=== PATIENT | male | born 1945 | race Caucasian/White ===

== ENCOUNTER → 2023-07-26 06:40 | Outpatient (REF) | payer MEDICARE, OTHER, SELFPAY | LOC: MRI 3T 06:40 | PROVIDERS: ATTENDING PHYSICIAN Student in an Organized Health Care Education/Training Program; FAMILY PHYSICIAN Internal Medicine; REFERRING PHYSICIAN Orthopaedic Surgery | DX: M25.511 Pain in right shoulder (principal); M47.816 Spondylosis without myelopathy or radiculopathy, lumbar region | CPT/HCPCS: 72148; 73221 ==

== ENCOUNTER → 2023-08-10 06:59 | Day surgery (SDC) | payer MEDICARE, OTHER, SELFPAY ==
[2023-08-10 08:44] LABS: Hematocrit 38.7 % (39.0-52.0); Hemoglobin 12.9 g/dL (13.0-18.0); Mean Corp Hgb Conc. 33.3 g/dL (33.0-37.0); Mean Corpuscular Hgb 31.7 pg (27.0-31.0); Mean Corpuscular Volume 95.1 fL (80.0-94.0); Mean Platelet Volume 9.4 fL (7.4-10.4); Platelet Count 219 10^3/uL (130-400); Red Blood Cell Count 4.07 10^6/uL (4.70-6.10); Red Cell Dist. Width 13.3 % (11.5-14.5); White Blood Cell Count 7.7 10^3/uL (4.8-10.8)
== END ==
LOC: SDSPAT 06:59
PROVIDERS: ATTENDING PHYSICIAN Orthopaedic Surgery; FAMILY PHYSICIAN Internal Medicine
DX: Z01.812 Encounter for preprocedural laboratory examination (principal); S83.011A Lateral subluxation of right patella, initial encounter; X58.XXXA Exposure to other specified factors, initial encounter
CPT/HCPCS: 85027; 36415

== ENCOUNTER 2023-08-12 06:09 | Day surgery (SDC) | payer MEDICARE, OTHER, SELFPAY ==
[2023-08-10 12:16] VITALS: BMI 31.5
[2023-08-12] VITALS (8 sets, daily range): BP systolic 99–139; BP diastolic 63–85; BMI 31.5
[2023-08-12] MEDS: TYLENOL 1000 MG PO (09:11)
[2023-08-12] MEDS: CELEBREX 200 MG PO (09:11)
[2023-08-12] MEDS: NORMOSOL-R 1000 IV (09:14)
== END 2023-08-12 13:30 | disposition home or self-care (01) ==
LOC: SDS 06:09
PROVIDERS: ATTENDING PHYSICIAN Orthopaedic Surgery; FAMILY PHYSICIAN Internal Medicine
DX: M75.121 Complete rotator cuff tear or rupture of right shoulder, not specified as traumatic (principal)
CPT/HCPCS: 29827; 29826; C1713

== ENCOUNTER 2023-09-14 16:03 | Outpatient (RCR) | payer MEDICARE, OTHER, SELFPAY | END 2023-09-14 23:59 | disposition home or self-care (01) | LOC: RPT 16:03 | PROVIDERS: ATTENDING PHYSICIAN Physician Assistant Surgical; FAMILY PHYSICIAN Internal Medicine | DX: Z47.89 Encounter for other orthopedic aftercare (principal); Z73.6 Limitation of activities due to disability; M62.81 Muscle weakness (generalized); M25.511 Pain in right shoulder | CPT/HCPCS: 97010; 97110; 97140; 97161 ==

== ENCOUNTER 2023-10-19 14:11 | Outpatient (RCR) | payer MEDICARE, OTHER, SELFPAY | END 2023-10-19 23:59 | disposition home or self-care (01) | LOC: RPT 14:11 | PROVIDERS: ATTENDING PHYSICIAN Physician Assistant Surgical; FAMILY PHYSICIAN Internal Medicine | DX: M25.511 Pain in right shoulder (principal); Z98.890 Other specified postprocedural states; Z73.6 Limitation of activities due to disability | CPT/HCPCS: 97010; 97110 ==

== ENCOUNTER 2023-11-09 14:49 | Outpatient (RCR) | payer MEDICARE, OTHER, SELFPAY | END 2023-11-09 23:59 | disposition home or self-care (01) | LOC: RPT 14:49 | PROVIDERS: ATTENDING PHYSICIAN Physician Assistant Surgical; FAMILY PHYSICIAN Internal Medicine | DX: Z47.89 Encounter for other orthopedic aftercare (principal); Z73.6 Limitation of activities due to disability; M62.81 Muscle weakness (generalized); M25.511 Pain in right shoulder | CPT/HCPCS: 97010; 97110 ==

== ENCOUNTER 2024-02-11 13:57 | Emergency (ER) | payer MEDICARE, OTHER, SELFPAY ==
[2024-02-11 14:02] VITALS: BP 105/71
[2024-02-11 14:26] LABS: % Basophils 0.9 % (0-2); % Eosinophils 2.4 % (0-6); % Immature Granulocytes 0.1 % (0-0.5); % Lymphocytes 34.4 % (20.5-51.1); % Monocytes 8.6 % (1.7-9.3); % Neutrophils 53.6 % (42.2-75.2); Absolute Basophils 0.1 10^3/uL (0-0.2); Absolute Eosinophils 0.2 10^3/uL (0-0.7); Absolute Monocytes 0.8 10^3/uL (0.1-0.6); Absolute Neutrophils 4.7 10^3/uL (1.4-6.5); Hematocrit 42.7 % (39.0-52.0); Hemoglobin 14.9 g/dL (13.0-18.0); Mean Corp Hgb Conc. 34.9 g/dL (33.0-37.0); Mean Corpuscular Volume 91.8 fL (80.0-94.0); Mean Platelet Volume 9.1 fL (7.4-10.4); Nucleated Red Blood Cells % 0 % (-); Platelet Count 212 10^3/uL (130-400); Red Blood Cell Count 4.65 10^6/uL (4.70-6.10); Red Cell Dist. Width 13.2 % (11.5-14.5); White Blood Cell Count 8.8 10^3/uL (4.8-10.8)
[2024-02-11 14:41] LABS: COVID-19 Antigen Negative (Negative)
[2024-02-11 15:00] LABS: ALT (SGPT) 37 U/L (0-50); AST (SGOT) 44 U/L (17-59); Albumin 4.5 g/dl (3.5-5.0); Alkaline Phosphatase 53 U/L (38-126); Blood Urea Nitrogen 18 mg/dl (9-20); Calcium 9.7 mg/dl (8.4-10.2); Carbon Dioxide 26 mmol/L (22-30); Chloride 104 mmol/L (98-107); Glucose 129 mg/dl (70-99); Magnesium 1.8 mg/dl (1.6-2.3); Potassium 4.7 mmol/L (3.5-5.1); Sodium 140 mmol/L (135-145); Total Bilirubin 0.6 mg/dl (0.2-1.3); Total Protein 6.8 g/dl (6.3-8.2); eGFR > 60.00
--- NOTE | 2024-02-11 15:02 | ED.GENMED ---
History of Present Illness
General
Chief Complaint: Dizziness
Time Seen by Provider: 02/11/24 14:42
History of Present Illness
History of Present Illness:
78-year-old male with history of hypertension and hyperlipidemia presents to the emergency department for evaluation of intermittent symptoms since Wednesday including sweats, blurry vision, dizziness, and confusion. Symptoms seem to wax and wane
without obvious provoking or palliating factors. Denies chest pain or shortness of breath. Currently feels well with no complaints at this time. He also notes 'sounds in my head' as well as vivid dreams that are quite new for him.
Past History
Past History
ED Past Medical History: CAD, Hypercholesterolemia and Other (kidney stones, GERD, depression, arthritis, colon polyps, hemmorhiods)
ED Past Surgical History: Cardiac
Social History
Tobacco: Non-smoker
Alcohol: None
Drug: None
Personal:
Living: with family
Employment: Retired
Review of Systems
Review of Systems
Allergies reviewed?: Yes
All Other Systems: ROS reviewed and negative except as documented in HPI and ROS
Phy Exam
Physical Exam
Physical Exam:
GEN: Well appearing, NAD, WDWN
Eyes: PERRLA, EOMs intact, no scleral icterus
HENT: NCAT, oral mucosa moist, no JVD
Lungs: CTAB, no wheezes, rales, rhonchi, normal chest wall excursion
Cardiac: RRR, no M/R/G, no peripheral edema. Radial pulses 2+ bilat
Abdomen: S, NT, ND, NABS, no masses or hepatosplenomegaly
Neuro: AO x 3, no focal deficits to BUE/BLE, normal sensation throughout
MSK: No gross deformity or ecchymosis. No edema. No digital clubbing
Skin: No rashes, petechiae. Normal color, no pallor or jaundice.
Psych: Calm, cooperative, proper hygiene
Course
Orders/Labs/Results
Orders:
Orders
02/11/24 14:07
ECG [Electrocardiogram (*1)] Urgent
Reason for Study: Vertigo / Dizzy
EKG- Treatment ONCE
02/11/24 14:15
COVID-19 Antigen Urgent
Source: Nasal Swab
Complete Blood Count/With Diff Urgent
Comprehensive Metabolic Panel Urgent
Magnesium Urgent
TSH Reflex To Free T4 Urgent
Troponin I Urgent
02/11/24 15:09
CT Head W/o Iv Contrast Urgent
Comment:
Reason For Exam: dizziness/confusion
02/11/24 16:56
Urinalysis Reflex To Culture Urgent
Date Specimen was Collected: 02/11/24
Time Specimen was Collected: 16:20
Abnormal Lab Results
02/11/24
14:15
RBC 4.65 L 10^6/uL
(4.70-6.10)
MCH 32.0 H pg
(27.0-31.0)
Absolute Monos (auto) 0.8 H 10^3/uL
(0.1-0.6)
Glucose 129 H mg/dl
(70-99)
02/11/24 14:15
02/11/24 14:15
Vital Signs
Initial and Last Documented VS:
Initial Vital Signs
Temp Pulse Resp BP Pulse Ox
97.4 F 98 20 105/71 98
02/11/24 14:02 02/11/24 14:02 02/11/24 14:02 02/11/24 14:02 02/11/24 14:02
Last Documented Vital Signs
Temp Pulse Resp BP Pulse Ox
98.3 F 71 16 118/74 96
02/11/24 17:55 02/11/24 17:55 02/11/24 17:55 02/11/24 17:55 02/11/24 17:55
MDM/Problems Addressed
MDM/Problems Addressed:
Patient's initial EKG in triage noted a rate controlled atrial flutter however upon talking the patient off the telemetry he returned to normal sinus rhythm. His workup is grossly unremarkable otherwise with normal labs and a negative head CT. He
has no focal symptoms to suggest acute CVA. Certainly his intermittent symptoms could be explained by paroxysms of A-fib given that he is higher risk for stroke based on age and health risk factors he would be appropriate to initiate on
anticoagulant therapy. His blood pressure was low normal in the emergency department thus I do not feel that beta-blockers or calcium channel blockers are appropriate at this time. Will recommend close cardiology follow-up
Comment
Comment:
Initial EKG independently interpreted by me shows atrial flutter at a rate of [address] changes concerning for ischemia
*Critical Care Note
Total Time (30-74mins, 75-104mins- exclusive of procedures): Not Applicable
ED Attending Note
-
Portions of this chart may have been created with voice recognition software.� Occasional wrong word or��sound alike� substitutions may have occurred due to the inherent limitations of voice recognition software.
Discharge Plan
Departure
Patient Disposition: Home (Routine Discharge)
Date of Disposition: 02/11/24
Time of Disposition: 17:42
Patient with high blood pressure during this ER visit?: No
Discharge Problem:
New onset atrial flutter
Instructions: Atrial Flutter (DC)
Prescriptions:
New
Eliquis 5 mg tablet
5 mg PO BID Qty: 60 0RF
No Action
venlafaxine 225 MG tablet extended release 24hr
150 mg PO DAILY
pantoprazole 40 MG tablet,delayed release (DR/EC)
40 mg PO DAILY Qty: 90 3RF
atorvastatin 80 MG tablet
80 mg PO HS
ezetimibe 10 MG tablet
10 mg PO QPM
lisinopril [Zestril] 10 MG tablet
10 mg PO HS
montelukast 10 MG tablet
10 mg PO DAILY
aspirin [Aspir-81] 81 mg Tablet,Delayed Release (Dr/Ec)
81 mg PO HS
acetaminophen [Tylenol Ex Str Arthritis Pain] 500 mg Tablet
500 mg PO Q6H PRN (Reason: pain)
fiber Capsule
1 cap PO DAILY
Ever Poly Dex Drops,Suspension
1 drp OPHTHALMIC (EYE) TID
Rx Instructions:
RIGHT EYE
turmeric root extract 500 mg Capsule
500 mg PO DAILY
Centrum Silver Men [id number] mcg Tablet
1 tab PO DAILY
Sciatic Nerve Formula
1 cap PO DAILY
fluticasone propion-salmeterol [Wixela Inhub] 500-50 mcg/dose Blister With Device
1 inh INHALATION BID
Referrals:
Kemal Henriquez MD [Active] -
Mt Vasquez MD [Family Provider] -
Interventions
Interventions:
*Risk Screen - Suicide Last Done: 02/11/24 17:54
*General Assessment Last Done: 02/11/24 14:02
*Neglect/Abuse Screening Last Done: 02/11/24 16:27
*ED COVID-19 Vaccine History Last Done: 02/11/24 17:54
*Nursing Disposition Last Done: 02/11/24 17:55
ED- Neurological Assessment Last Done: 02/11/24 17:02
ED- Cardiac Assessment Last Done: 02/11/24 17:55
ED Swallowing Screen Last Done: 02/11/24 17:54
Discharge Date and Time
Discharge Date/Time: 02/11/24 17:59
Print Language: LIBYAN
[2024-02-11 15:08] LABS: Troponin I < 0.012 ng/ml
[2024-02-11 15:28] LABS: TSH Reflex To Free T4 2.96 uIU/ml (0.47-4.68)
[2024-02-11 17:07] LABS: Urine Albumin Negative (Neg - Trace); Urine Bilirubin Negative (Negative); Urine Character Clear (Clear); Urine Color Yellow; Urine Glucose Negative (Negative); Urine Ketone Negative (Negative); Urine Leukocyte Negative (Negative); Urine Nitrite Negative (Negative); Urine Occult Blood Negative (Negative); Urine Urobilinogen Negative (Neg - 1+)
--- NOTE | 2024-02-11 17:51 | CM ---
CM provided patient and with Everett flores. [facility]. is a pharmacy clinical specialist and will obtain his initial medications through [facility] and then she will [facility].
[2024-02-11 17:55] VITALS: BP 118/74
== END 2024-02-11 17:59 | disposition home or self-care (01) ==
LOC: EMR 13:57
PROVIDERS: Physician Assistant; EMERGENCY PHYSICIAN Emergency Medicine; FAMILY PHYSICIAN Internal Medicine
DX: H53.8 Other visual disturbances (principal); R41.0 Disorientation, unspecified; R42 Dizziness and giddiness; R61 Generalized hyperhidrosis; I48.92 Unspecified atrial flutter; Z11.52 Encounter for screening for COVID-19; I10 Essential (primary) hypertension; E78.00 Pure hypercholesterolemia, unspecified; I25.10 Atherosclerotic heart disease of native coronary artery without angina pectoris; F32.A Depression, unspecified; K21.9 Gastro-esophageal reflux disease without esophagitis; M19.90 Unspecified osteoarthritis, unspecified site; Z87.442 Personal history of urinary calculi; Z91.048 Other nonmedicinal substance allergy status
CPT/HCPCS: 99284; 70450; 80053; 81003; 83735; 84443; 84484; 85025; 87811; 93005

== ENCOUNTER → 2024-04-10 13:55 | Outpatient (REF) | payer MEDICARE, OTHER, SELFPAY | LOC: RCS 13:55 | PROVIDERS: ATTENDING PHYSICIAN Internal Medicine; FAMILY PHYSICIAN Internal Medicine | DX: I25.10 Atherosclerotic heart disease of native coronary artery without angina pectoris (principal); I48.92 Unspecified atrial flutter; I34.1 Nonrheumatic mitral (valve) prolapse | CPT/HCPCS: 93306 ==

== ENCOUNTER → 2024-05-02 11:10 | Outpatient (REF) | payer MEDICARE, OTHER, SELFPAY | LOC: RAD 11:10 | PROVIDERS: ATTENDING PHYSICIAN Nurse Practitioner Family; FAMILY PHYSICIAN Internal Medicine | DX: R06.02 Shortness of breath (principal) | CPT/HCPCS: 71046 ==

== ENCOUNTER → 2024-05-04 08:24 | Outpatient (REF) | payer MEDICARE, OTHER, SELFPAY | LOC: HWRAD 08:24 | PROVIDERS: ATTENDING PHYSICIAN Nurse Practitioner Family; FAMILY PHYSICIAN Internal Medicine; REFERRING PHYSICIAN Internal Medicine | DX: R93.89 Abnormal findings on diagnostic imaging of other specified body structures (principal); J84.9 Interstitial pulmonary disease, unspecified | CPT/HCPCS: 71250 ==

== ENCOUNTER 2024-07-19 10:18 | Inpatient (IN) | payer MEDICARE, OTHER, SELFPAY ==
[2024-07-19 10:42] VITALS: BP 119/84
[2024-07-19 10:53] VITALS: BMI 31.1
--- NOTE | 2024-07-19 12:37 | W.PN.CD ---
Addendum entered and electronically signed by Antonio Stinson MD 07/19/24 16:42:
I saw and examined the patient.
The IC DESIGNER CUSTOM's note was reviewed and I agree with the note.
Comment:
78 y/o male (cardiology patient of Dr. 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
for dofetilide initiation. Has chronic SOB with walking from house to shed. No active CV complaints at the moment. Exam is well-appearing, irregularly irregular rhythm with no murmurs, no LE edema. ECG with atrial fibrillation, HR 88, nonspecific
ST-T wave changes, QTc 436 ms by manual calculation. Start Dofetilide with ECGs after each dose per protocol. Continue ASA, statin, Eliquis.
Original Note:
Today's Communication / Plan
-
Initiate dofetilide with tele and EKG's per protocol
Impression / Plan
-
78 y/o male (cardiology patient of Dr. 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
for dofetilide initiation.
Atrial fibrillation, paroxysmal:
-PAF noted on OP monitor
-continue Eliquis for OAC
-initiate dofetilide per Dr. Henriquez's plan- follow EKG's and tele per protocol
-awaiting labs. EKG to my manual review with QTC 436 ms.
CAD with hx stenting:
-stable no CP
-continue ASA, statin
Lung disease:
-stable without wheezing
-continue inhalers
HTN:
-continue amlodipine and monitor
HLD:
-statin
JACK:
-continue CPAP
Physical Exam
Vital Signs/Labs
Vital Signs
Temp Pulse Resp BP Pulse Ox
97.6 F 106 18 119/84 96
07/19/24 10:59 07/19/24 12:00 07/19/24 10:59 07/19/24 10:42 07/19/24 10:59
07/18/24 07/19/24 07/20/24
06:59 06:59 06:59
Actual Weight 89.9 kg
Physical Exam
Constitutional: No acute distress
EENT: Anicteric
Cardiovascular: Rhythm/rate is irregular
Respiratory: Respiratory effort normal and Lungs clear to auscul.
Neuro/Psych: AO x 3
Data Reviewed
-
Date of Service: July 19, 2024
EKG: Tracing Personally Visualized and interpreted (EKG: afib with QTC 436 ms)
Labs: Other (labs pending)
Old Records: Reviewed
--- NOTE | 2024-07-19 12:45 | PTCARENOTE ---
Pt admitted to IVU as a direct admission from . Pt AAOx3 w/no c/o CP, but does report intermittent SOB w/any activity. Pt oriented to rm & admission assessment completed. After two attempts at placing an IV line, VAT came & placed an IV in pt's L
FA as ordered. Pt placed on telemetry monitoring. Pt is Afib on telemetry. VSS w/HR in the 80's-90's at rest & BP 119/84 on arrival. Cardiology in to see pt & plan of care discussed. Pt to start Tikosyn today at 1999. Plan of care ongoing.
[2024-07-19 13:01] LABS: Hematocrit 41.2 % (39.0-52.0); Hemoglobin 14.3 g/dL (13.0-18.0); Mean Corp Hgb Conc. 34.7 g/dL (33.0-37.0); Mean Corpuscular Hgb 31.4 pg (27.0-31.0); Mean Corpuscular Volume 90.4 fL (80.0-94.0); Mean Platelet Volume 8.9 fL (7.4-10.4); Platelet Count 217 10^3/uL (130-400); Red Blood Cell Count 4.56 10^6/uL (4.70-6.10); Red Cell Dist. Width 12.8 % (11.5-14.5); White Blood Cell Count 7.5 10^3/uL (4.8-10.8)
[2024-07-19 13:18] LABS: Blood Urea Nitrogen 24 mg/dl (9-20); Calcium 9.4 mg/dl (8.4-10.2); Carbon Dioxide 24 mmol/L (22-30); Chloride 100 mmol/L (98-107); Estimated Creatinine Clearance 72 ml/min; Glucose 129 mg/dl (70-99); Potassium 4.4 mmol/L (3.5-5.1); Sodium 135 mmol/L (135-145); eGFR > 60.00
--- NOTE | 2024-07-19 13:22 | W.CARD.TIKOS ---
Initiate Tikosyn
-
I verify that the patient has not taken any verapamil (Isoptin/Calan), ketoconazole (Nizoral), cimetidine (Tagamet), trimethoprim (Trimpex), trimethoprim/sulfamethoxazole (Bactrim), megesterol (Megace), prochlorperazine (Compazine),
hydrochlorothiazide (HCTZ), dolutegravir (Tivicay) or any Class I or Class III anti-arrhythmic within the last three days
AND
I verify that the patient has not taken amiodarone within the last THREE months, or that the patient's amiodarone plasma concentration is <0.3 mcg/mL.
Creatinine 0.9 mg/dL (0.7-1.3) 07/19/24 12:38
Estimated Creat Clear 72 ml/min 07/19/24 12:38
Does patient have a Ventricular Conduction Abnormality: No
I have assessed the baseline QTc interval (using QT for heart rate less than 60 bpm) and deemed the patient is appropriate for Dofetilide therapy. I understand that Tikosyn is contraindicated if the QTc is >440msec (500msec in patients with
ventricular conduction abnormalities).
Baseline QTc (in msec): 436
QTc interval is greater than 440msec without conduction abnormality OR greater than 500msec with a conduction abnormality, but acceptable to proceed per Cardiology attending.
Ordering Physician: Kemal Henriquez
[2024-07-19 13:37] VITALS: BMI 31.1
--- NOTE | 2024-07-19 14:37 | CM ---
CM following for DC planning needs.
Met w/ patient at bedside to complete initial assessment.
Pt. resides in a private, 1 st home w/ spouse. Pt. is functionally indep. at baseline w/ ADLs, mobility without the use of any assisted device. [facility] He reports that the MD will need to send RX to the [facility]
upon DC, but process takes a week or so to get his medicine. He can go to [facility] in the interim and pay out of pocket (thru [employer]) for his medication.
Will need x3 day supply of Dofetilide upon DC.
There are no anticipated DC needs. Expect home once medically stable.
Will cont. to follow.
[2024-07-19 16:21] VITALS: BP 126/82
[2024-07-19] MEDS: ZETIA 10 MG PO (18:22)
[2024-07-19 19:51] VITALS: BP 103/84
[2024-07-19] MEDS: ELIQUIS 5 MG PO (20:01)
[2024-07-19] MEDS: TIKOSYN 500 MCG PO (20:01)
--- NOTE | 2024-07-19 22:04 | RESPNOTE ---
Pt did not have own Cpap nor did he want hospital provided machine.
[2024-07-19 22:07] VITALS: BP 123/71
[2024-07-19] MEDS: LIPITOR 80 MG PO (22:07)
[2024-07-19] MEDS: ASPIR LOW (ENTERIC COATED) 81 MG PO (22:07)
--- NOTE | 2024-07-19 22:37 | PTCARENOTE ---
Received patient at change of shift. Afib on the monitor, HR in the 80s. Tikosyn administered and EKG obtained as per protocol. No complaints from pt at this time, call dalal within reach.
[2024-07-20] VITALS (7 sets, daily range): BP systolic 106–127; BP diastolic 69–94
[2024-07-20] MEDS: MAGNESIUM OXIDE 500 MG PO (07:43)
[2024-07-20] MEDS: EFFEXOR XR 300 MG PO (07:43)
[2024-07-20] MEDS: PROTONIX 40 MG PO (07:43)
[2024-07-20] MEDS: TIKOSYN 500 MCG PO ×2 (07:43→19:31)
[2024-07-20] MEDS: THERAGRAN 1 TABLET PO (07:44)
[2024-07-20] MEDS: FIBERCON 625 MG PO (07:44)
[2024-07-20] MEDS: SINGULAIR 10 MG PO (07:44)
[2024-07-20] MEDS: ELIQUIS 5 MG PO ×2 (07:44→19:31)
[2024-07-20] MEDS: NORVASC 5 MG PO (07:44)
[2024-07-20] MEDS: LASIX 20 MG PO (07:45)
--- NOTE | 2024-07-20 08:37 | W.PN.CD ---
Today's Communication / Plan
-
-Stable status-post 2 doses of Tikosyn; currently back in sinus rhythm.
-Continue Eliquis; patient has not missed any doses over the past 3 weeks.
-Continue to follow EKG's (QTc) and telemetry as per protocol.
Impression / Plan
-
78 y/o male (Ccardiology patient of Dr. 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
for dofetilide initiation.
Atrial fibrillation, paroxysmal:
-Stable status-post 2 doses of Tikosyn; currently back in sinus rhythm.
-Continue Eliquis; patient has not missed any doses over the past 3 weeks.
-Continue to follow EKG's (QTc) and telemetry as per protocol.
CAD with hx stenting:
-Stable; denies anginal symptoms.
-continue ASA, statin
Lung disease:
-Currently stable, asymptomatic.
-continue inhalers
HTN:
-Fairly controlled; continue current medications.
HLD:
-Continue statin
JACK:
-continue CPAP
Physical Exam
Vital Signs/Labs
Vital Signs
Temp Pulse Resp BP Pulse Ox
98.0 F 63 16 118/88 97
07/20/24 07:40 07/20/24 07:40 07/20/24 07:40 07/20/24 07:38 07/20/24 07:40
07/19/24 07/20/24 07/21/24
06:59 06:59 06:59
Actual Weight 89.9 kg
07/19/24 12:38
07/19/24 12:38
Physical Exam
Constitutional: No acute distress and Comfortable
EENT: Anicteric
Cardiovascular: Rhythm & rate is regular, Pedal edema is absent, Systolic murmur absent and S1S2 is normal
Respiratory: Respiratory effort normal and Lungs clear to auscul.
GI: Soft
Neuro/Psych: AO x 3
Other: Skin (Warm, dry, intact)
Data Reviewed
-
Date of Service: July 20, 2024
EKG: Tracing Personally Visualized and interpreted (Telemetry: Atrial fibrillation --> sinus rhythm)
Labs: Labs Reviewed by me
--- NOTE | 2024-07-20 08:53 | PTCARENOTE ---
Assumed care of pt from night RN. Pt received awake and alert, Ox3, [place]. VSS, CM shows NSR 80's, POX 97% on RA. Tikosyn dose #2 given at 0800, next EKG due at 1000. Pt denies any pain or discomfort.
--- NOTE | 2024-07-20 11:02 | CM ---
CM continues to follow for DC planning needs.
DC plan anticipated for home, no needs. Will need 3d RX for Tikosyn prior to DC. Will provide GoodRx coupon.
CM to follow.
--- NOTE | 2024-07-20 14:06 | CHAP ---
Fr. Akbar Hayes of [facility] in [place] heard Mr. Cortez's confession, anointed him and gave him Holy Communion.
[2024-07-20] MEDS: ZETIA 10 MG PO (17:25)
--- NOTE | 2024-07-20 21:02 | PTCARENOTE ---
Patient received at change of shift out of the bed. Patient offers no complaints at this time. Sinus rhythm on monitor worker with first degree AV block, prolonged QT interval, and occasional PACs. Oxygen saturation 95-96% on room air. Discussed
plan of care including Tikosyn loading and ECGs. Call dalal within reach. Care ongoing.
[2024-07-20] MEDS: LIPITOR 80 MG PO (21:44)
[2024-07-20] MEDS: ASPIR LOW (ENTERIC COATED) 81 MG PO (21:44)
[2024-07-21] VITALS (8 sets, daily range): BP systolic 101–134; BP diastolic 65–89
--- NOTE | 2024-07-21 06:24 | PTCARENOTE ---
Notified CBC adoption agent physician Dr. Henriquez of prolonged Qtc on ECG following 2000 Tikosyn dose on 07/20. Per physician please hold AM dose of Tikosyn until the patient can be evaluated.
[2024-07-21] MEDS: FIBERCON 625 MG PO (08:46)
[2024-07-21] MEDS: TIKOSYN 500 MCG PO ×2 (08:46→19:46)
[2024-07-21] MEDS: SINGULAIR 10 MG PO (08:46)
[2024-07-21] MEDS: PROTONIX 40 MG PO (08:48)
[2024-07-21] MEDS: MAGNESIUM OXIDE 500 MG PO (08:48)
[2024-07-21] MEDS: EFFEXOR XR 300 MG PO (08:49)
[2024-07-21] MEDS: THERAGRAN 1 TABLET PO (08:49)
[2024-07-21] MEDS: ELIQUIS 5 MG PO ×2 (08:49→19:46)
[2024-07-21] MEDS: LASIX 20 MG PO (08:53)
[2024-07-21] MEDS: NORVASC 5 MG PO (08:54)
--- NOTE | 2024-07-21 11:01 | W.PN.CD ---
Today's Communication / Plan
-
-QTc remains stable on Tikosyn; 5th dose this am.
-Continues to go in and out of atrial fibrillation at times.
-Will add metoprolol to tartrate 12.5 mg twice daily.
-Continue traffic monitor specialist.
-The patient will receive 6th dose of Tikosyn later tonight; if stable, discharge to home tomorrow morning after a.m. dose.
Impression / Plan
-
78 y/o male (Ccardiology patient of Dr. 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
for dofetilide initiation.
Atrial fibrillation, paroxysmal:
-QTc remains stable on Tikosyn; 5th dose this am.
-Continues to go in and out of atrial fibrillation at times.
-Will add metoprolol to tartrate 12.5 mg twice daily.
-Continue traffic monitor specialist.
-The patient will receive 6th dose of Tikosyn later tonight; if stable, discharge to home tomorrow morning after a.m. dose.
-Continue Eliquis; patient has not missed any doses over the past 3 weeks.
CAD with hx stenting:
-Remains stable without angina.
-continue ASA, statin
Lung disease:
-Remains asymptomatic.
-continue inhalers
HTN:
-Remains fairly controlled.
HLD:
-Continue statin
JACK:
-continue CPAP
Physical Exam
Vital Signs/Labs
Vital Signs
Temp Pulse Resp BP Pulse Ox
98.2 F 66 18 134/65 96
07/21/24 07:11 07/21/24 10:00 07/21/24 07:11 07/21/24 08:54 07/21/24 07:11
07/20/24 07/21/24 07/22/24
06:59 06:59 06:59
Actual Weight 89.9 kg
07/19/24 12:38
07/19/24 12:38
Physical Exam
Constitutional: No acute distress and Comfortable
EENT: Anicteric and Moist mucous membranes
Cardiovascular: Rhythm & rate is regular, Pedal edema is absent, Systolic murmur absent and S1S2 is normal
Respiratory: Respiratory effort normal and Lungs clear to auscul.
GI: Soft
Neuro/Psych: AO x 3
Other: Skin (Warm, dry, intact)
Data Reviewed
-
Date of Service: July 21, 2024
EKG: Tracing Personally Visualized and interpreted (Telemetry: Sinus rhythm, PAF)
Labs: Labs Reviewed by me
--- NOTE | 2024-07-21 11:06 | CM ---
CM following for DC planning needs.
Met w/ patient at bedside.
Pt. feels well, is hopeful for DC soon. We reviewed DC plan for home, without needs.
We reviewed that he will be sent home w/ 3d supply of Tikosyn; reviewed this w/ PLANT SECURITY GUARD.
Will provide pt. with a GoodRX coupon for a month supply of Tikosyn. [facility] He will need a separate RX for ongoing fills of Tikosyn. I updated PLANT SECURITY GUARD of this as well.
Plan is for home, without needs.
[2024-07-21] MEDS: LOPRESSOR 12.5 MG PO ×2 (11:27→19:46)
--- NOTE | 2024-07-21 11:41 | PTCARENOTE ---
post tikosyn ekg QTc 583. notified dr. erazo, continue to monitor. pt is currently sr on the monitor, hr in the 80s, vss. pt offers no complaints at this time. pt ambulating in room and tolerating well. call dalal within reach.
[2024-07-21] MEDS: ZETIA 10 MG PO (17:00)
--- NOTE | 2024-07-21 17:53 | PTCARENOTE ---
pt is sr w/ a first degree, vss. pt offers no complaints at this time. pt and family educated on plan of care and pt verbalized understanding. Tikosyn medication given to pt per pharmacy. pt educated on plan of care and pt verbalized understanding.
call dalal within reach.
[2024-07-21] MEDS: NON-FORMULARY ITEM INH (19:22)
--- NOTE | 2024-07-21 20:22 | PTCARENOTE ---
Patient received at change of shift resting in the bed. Initially in afib on tele monitor but now SR with a first degree AV block. Patient offered no complaints, was initially tearful but reported he received difficult news regarding friends.
Remains on room air, oxygen saturation 95%. Plan of care discussed with patient. Call dalal within reach. Care ongoing.
[2024-07-21] MEDS: ASPIR LOW (ENTERIC COATED) 81 MG PO (22:02)
[2024-07-21] MEDS: LIPITOR 80 MG PO (22:02)
[2024-07-22 02:39] VITALS: BP 116/66
[2024-07-22 06:50] VITALS: BP 102/69
[2024-07-22] MEDS: NON-FORMULARY ITEM 1 INH INH (07:29)
[2024-07-22] MEDS: NON-FORMULARY ITEM INH ×4 (07:36→07:39)
[2024-07-22] MEDS: LASIX 20 MG PO (07:52)
[2024-07-22] MEDS: LOPRESSOR 12.5 MG PO (07:52)
[2024-07-22] MEDS: PROTONIX 40 MG PO (07:52)
[2024-07-22] MEDS: FIBERCON 625 MG PO (07:53)
[2024-07-22] MEDS: NORVASC 5 MG PO (07:53)
[2024-07-22] MEDS: MAGNESIUM OXIDE 500 MG PO (07:53)
[2024-07-22] MEDS: ELIQUIS 5 MG PO (07:53)
[2024-07-22] MEDS: EFFEXOR XR 300 MG PO (07:54)
[2024-07-22] MEDS: THERAGRAN 1 TABLET PO (07:54)
[2024-07-22] MEDS: TIKOSYN 500 MCG PO (07:54)
[2024-07-22] MEDS: SINGULAIR 10 MG PO (07:55)
--- NOTE | 2024-07-22 08:34 | PTCARENOTE ---
Assumed care of pt from night RN. Pt received awake and alert, Ox3. VSs, CM shows NSR 60's, POX 98% on RA. Pt received dose # 6 of Tikosyn this am, will do EKG at 1000. Pt denies any pain or discomfort.
--- NOTE | 2024-07-22 08:52 | W.PN.CD ---
Addendum entered and electronically signed by Antonio Stinson MD 07/22/24 13:12:
I saw and examined the patient.
The CRA's note was reviewed and I agree with the note.
Comment:
78 y/o male (Ccardiology patient of Dr. 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
for dofetilide initiation. He has completed 6 doses of dofetilide. He had one short paroxysm of afib last night around 6pm lasting <30 min. ECG today with QTc 443 ms. Exam with RRR, no murmur, clear lungs, no edema. He is stable for discharge on
dofetilide 500 mcg every 12 hours. Continue other cardiac meds as prior to hospitalization.
Original Note:
Today's Communication / Plan
-
check EKG after morning dose of Tikosyn and if continues to be stable, then d/c home.
Impression / Plan
-
78 y/o male (Ccardiology patient of Dr. 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
for dofetilide initiation.
Atrial fibrillation, paroxysmal:
-QTc remains stable on Tikosyn, awaiting EKG this am after morning dose, discharge to home tomorrow morning after a.m. dose.
-currently in NSR, intermittent atrial fibrillation at times.
-continue metoprolol tartrate 12.5 mg twice daily.
-Continue air sampling and monitoring.
-Continue Eliquis; patient has not missed any doses over the past 3 weeks.
CAD with hx stenting:
-Remains stable without angina.
-continue ASA, statin
Lung disease:
-Remains asymptomatic.
-continue inhalers
HTN:
-Remains fairly controlled.
HLD:
-Continue statin
JACK:
-continue CPAP
Physical Exam
Vital Signs/Labs
Vital Signs
Temp Pulse Resp BP Pulse Ox
97.5 F 58 16 102/69 98
07/22/24 06:49 07/22/24 07:32 07/22/24 07:32 07/22/24 06:50 07/22/24 08:29
07/19/24 12:38
07/19/24 12:38
Physical Exam
Constitutional: No acute distress
EENT: Anicteric and Moist mucous membranes
Cardiovascular: Rhythm & rate is regular
Respiratory: Respiratory effort normal and Lungs clear to auscul.
GI: Soft, Distention absent, Non tender and Normal bowel sounds
Neuro/Psych: AO x 3
Other: Skin (warm, dry)
Data Reviewed
-
Date of Service: July 22, 2024
Medical Decision Making: Reviewed Test Results
EKG: Tracing Personally Visualized and interpreted
Echo: Tracing Personally Visualized and interpreted
Labs: Labs Reviewed by me
Old Records: Reviewed
[2024-07-22 10:48] VITALS: BP 84/55
[2024-07-22 10:49] VITALS: BP 86/53
[2024-07-22 10:51] VITALS: BP 98/72
--- NOTE | 2024-07-22 11:16 | W.DS.TRANS ---
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
-
Discharge Instructions:
Discharge Diagnosis/Procedures Tikosyn loading for Afib
Diet Low Cholesterol,Low Sodium
Activity No restrictions
Driving Restrictions As prior to admission
Bathing Restrictions None
Instructions:
Stand-Alone Forms:
Changes to Home Medications: Yes
Discharge Medications:
DC Medications w/original date entered in [facility]
pantoprazole 40 mg tablet,delayed release 40 mg PO DAILY #90 tabs 08/19/15
atorvastatin 80 mg tablet 80 mg PO HS High cholesterol 10/18/19
ezetimibe 10 mg tablet 10 mg PO QPM High cholesterol 10/18/19
montelukast 10 mg tablet 10 mg PO DAILY ASTHMA 10/12/20
Sciatic Nerve Formula 1 cap PO DAILY Supplement 08/09/23
acetaminophen 500 mg tablet 500 mg PO Q6H PRN pain 08/09/23
aspirin 81 mg tablet,delayed release 81 mg PO HS Blood Clot Prevention/Tx 08/09/23
fiber 1 cap PO DAILY Gastrointestinal Issue 08/09/23
fluticasone 500 mcg-salmeterol 50 mcg/dose blistr powdr for inhalation (Wixela Inhub) 1 inh inhalation BID Lung/Breathing Issues 08/09/23
suplsqqr-ds-aoijs 300 mcg-K 60 mcg-lycop 600 mcg-lutein 300 mcg tablet (Centrum Silver Men) 1 tab PO DAILY Supplement 08/09/23
neomycin-polymyxin B-dexameth eye drops,suspension 1 drp ophthalmic (eye) BID Eye Condition 08/09/23
turmeric root extract 500 mg capsule 500 mg PO DAILY Supplement 08/09/23
apixaban 5 mg tablet (Eliquis) 5 mg PO BID #60 tabs 02/11/24
amlodipine 5 mg tablet 5 mg PO DAILY Blood Pressure 07/19/24
furosemide 20 mg tablet 20 mg PO DAILY Fluid Retention/Swelling 07/19/24
magnesium 500 mg tablet 500 mg PO DAILY Supplement 07/19/24
venlafaxine 150 mg capsule,extended release 24 hr 300 mg PO DAILY Mental Health/Anxiety 07/19/24
dofetilide 500 mcg capsule 500 mcg PO Q12 #60 caps 07/22/24
metoprolol tartrate 25 mg tablet 12.5 mg (1/2 x 25 mg) PO BID #60 tabs 07/22/24
Home Medication Changes
Tikosyn and Metoprolol Tartrate are new.
Pending Results: No
[2024-07-22 11:31] VITALS: BP 111/81
--- NOTE | 2024-07-22 12:43 | PTCARENOTE ---
All D/C info reviewed with pt and spouse, all questions answered. Pt D/C'd home with spouse.
== END 2024-07-22 12:44 | disposition home or self-care (01) | DRG 309 ==
LOC: IVU 10:18
PROVIDERS: Nurse Practitioner; ADMITTING PHYSICIAN Internal Medicine; FAMILY PHYSICIAN Internal Medicine
DX: I48.0 Paroxysmal atrial fibrillation (principal); J84.9 Interstitial pulmonary disease, unspecified; I25.10 Atherosclerotic heart disease of native coronary artery without angina pectoris; E78.5 Hyperlipidemia, unspecified; R73.03 Prediabetes; J42 Unspecified chronic bronchitis; G47.33 Obstructive sleep apnea (adult) (pediatric); I10 Essential (primary) hypertension; I48.92 Unspecified atrial flutter; I49.5 Sick sinus syndrome; I34.1 Nonrheumatic mitral (valve) prolapse; I47.19 Other supraventricular tachycardia; E78.00 Pure hypercholesterolemia, unspecified; Z79.01 Long term (current) use of anticoagulants; Z79.899 Other long term (current) drug therapy; Z95.5 Presence of coronary angioplasty implant and graft; Z82.49 Family history of ischemic heart disease and other diseases of the circulatory system
CPT/HCPCS: 80048; 85027; 93005; 94640

== ENCOUNTER → 2024-07-31 08:26 | Outpatient (REF) | payer MEDICARE, OTHER, SELFPAY | LOC: RST 08:26 | PROVIDERS: ATTENDING PHYSICIAN Internal Medicine Critical Care Medicine; FAMILY PHYSICIAN Internal Medicine | DX: J47.9 Bronchiectasis, uncomplicated (principal); R13.10 Dysphagia, unspecified | CPT/HCPCS: 74230; 92611 ==

== ENCOUNTER 2024-08-28 12:35 | Emergency (ER) | payer MEDICARE, OTHER, SELFPAY ==
[2024-08-28 12:36] VITALS: BP 130/83
[2024-08-28 13:00] VITALS: BP 115/86; BMI 32.1
--- NOTE | 2024-08-28 13:00 | EDRN ---
Pt states that pt had L shoulder pain on and then on Wednesday pain in his L bicep. Now pain is 2/10 at this time and no increase w/ movement or palpation. Pt states he had no injury but is on Eliquis.
--- NOTE | 2024-08-28 13:05 | EDRN ---
[employer] student in seeing pt at this time.
--- NOTE | 2024-08-28 13:14 | EDRN ---
Nicho Hitchcock PA in room w/ pt at this time.
--- NOTE | 2024-08-28 13:23 | ED.GENMED ---
History of Present Illness
General
Chief Complaint: Skin Problem
Time Seen by Provider: 08/28/24 13:03
History of Present Illness
History of Present Illness:
79-year-old male presents the emergency department for evaluation of presumably nontraumatic bruising to the left upper extremity. He is on Eliquis. Denies any pain or loss of range of motion of the arm. No forearm swelling. No recent fevers
Past History
Past History
ED Past Medical History: CAD, Hypercholesterolemia and Other (kidney stones, GERD, depression, arthritis, colon polyps, hemmorhiods)
ED Past Surgical History: Cardiac
Social History
Tobacco: Non-smoker
Alcohol: None
Drug: None
Personal:
Living: with family
Employment: Retired
Review of Systems
Review of Systems
Allergies reviewed?: Yes
All Other Systems: ROS reviewed and negative except as documented in HPI and ROS
Phy Exam
Physical Exam
Physical Exam:
GEN: Well appearing, NAD, WDWN
HEENT: Oral mucosa moist, no scleral icterus
Cardiac: Regular rate
Lung: No respiratory distress, no tachypnea
MSK: Widespread ecchymosis to the left upper arm extending toward the elbow. The bicep muscle is soft and compressible, grossly nontender. Left shoulder and left elbow range of motion normal. No forearm edema
Skin: Good color, no pallor or jaundice, no rashes
Neuro: AO x3, moves all extremities freely
Psych: Calm, cooperative
Course
Vital Signs
Initial and Last Documented VS:
Initial Vital Signs
Temp Pulse Resp BP Pulse Ox
97.7 F 73 16 130/83 96
08/28/24 12:36 08/28/24 12:36 08/28/24 12:36 08/28/24 12:36 08/28/24 12:36
Last Documented Vital Signs
Temp Pulse Resp BP Pulse Ox
97.7 F 64 16 115/86 98
08/28/24 12:36 08/28/24 13:00 08/28/24 13:00 08/28/24 13:00 08/28/24 13:00
MDM/Problems Addressed
MDM/Problems Addressed:
No clinical signs of compartment syndrome. No edema to suggest DVT particular given the patient is on Eliquis. Likely soft tissue injury with capillary hemorrhage resulting in profound bruising. Discussed use of ice and compression, educated
patient on signs of compartment syndrome although unlikely to develop in this instance
*Critical Care Note
Total Time (30-74mins, 75-104mins- exclusive of procedures): Not Applicable
ED Attending Note
-
Portions of this chart may have been created with voice recognition software.� Occasional wrong word or��sound alike� substitutions may have occurred due to the inherent limitations of voice recognition software.
Discharge Plan
Departure
Patient Disposition: Home (Routine Discharge)
Date of Disposition: 08/28/24
Time of Disposition: 13:23
Patient with high blood pressure during this ER visit?: No
Discharge Problem:
Spontaneous ecchymoses
Instructions: Muscle Strain ED
Prescriptions:
No Action
pantoprazole 40 MG tablet,delayed release (DR/EC)
40 mg PO DAILY Qty: 90 3RF
atorvastatin 80 MG tablet
80 mg PO HS
ezetimibe 10 MG tablet
10 mg PO QPM
montelukast 10 MG tablet
10 mg PO DAILY
aspirin 81 mg Tablet,Delayed Release (Dr/Ec)
81 mg PO HS
acetaminophen 500 mg Tablet
500 mg PO Q6H PRN (Reason: pain)
fiber Capsule
1 cap PO DAILY
neomycin-polymyxin B-dexameth Drops,Suspension
1 drp OPHTHALMIC (EYE) BID
Rx Instructions:
RIGHT EYE
turmeric root extract 500 mg Capsule
500 mg PO DAILY
Centrum Silver Men [id number] mcg Tablet
1 tab PO DAILY
Sciatic Nerve Formula
1 cap PO DAILY
fluticasone propion-salmeterol [Wixela Inhub] 500-50 mcg/dose Blister With Device
1 inh INHALATION BID
Eliquis 5 mg tablet
5 mg PO BID Qty: 60 0RF
magnesium 500 mg Tablet
500 mg PO DAILY
venlafaxine 150 mg Capsule,Extended Release 24hr
300 mg PO DAILY
amlodipine 5 mg Tablet
5 mg PO DAILY
furosemide 20 mg Tablet
20 mg PO DAILY
dofetilide 500 mcg Capsule
500 mcg PO Q12 Qty: 60 1RF
metoprolol tartrate 25 mg Tablet
12.5 mg PO BID Qty: 60 1RF
Referrals:
Mt Vasquez MD [Family Provider] -
Activity Restrictions/Additional Instructions:
Ice and elevate
Contact your primary doctor if symptoms worsen
Interventions
Interventions:
*Risk Screen - Suicide Last Done: 08/28/24 13:00
*General Assessment Last Done: 08/28/24 13:00
*Neglect/Abuse Screening Last Done: 08/28/24 13:00
*ED- Fall Risk Assessment Last Done: 08/28/24 13:00
*ED COVID-19 Vaccine History Last Done: 08/28/24 13:00
ED-Skin Assessment Last Done: 08/28/24 13:00
Discharge Date and Time
Print Language: IVORIAN
== END 2024-08-28 13:36 | disposition home or self-care (01) ==
LOC: EMR 12:35
PROVIDERS: EMERGENCY PHYSICIAN Emergency Medicine; FAMILY PHYSICIAN Internal Medicine
DX: R23.3 Spontaneous ecchymoses (principal); Z79.01 Long term (current) use of anticoagulants
CPT/HCPCS: 99282

== ENCOUNTER 2024-09-05 06:50 | Outpatient (RCR) | payer MEDICARE, OTHER, SELFPAY | END 2024-09-05 23:59 | disposition home or self-care (01) | LOC: RST 06:50 | PROVIDERS: ATTENDING PHYSICIAN Internal Medicine Critical Care Medicine; FAMILY PHYSICIAN Family Medicine | DX: J47.9 Bronchiectasis, uncomplicated (principal); R13.10 Dysphagia, unspecified | CPT/HCPCS: 92610 ==

== ENCOUNTER → 2025-01-02 08:14 | Outpatient (REF) | payer MEDICARE, OTHER, SELFPAY | LOC: RAD 08:14 | PROVIDERS: ATTENDING PHYSICIAN Internal Medicine Critical Care Medicine; FAMILY PHYSICIAN Internal Medicine | DX: R06.02 Shortness of breath (principal) | CPT/HCPCS: 71046 ==

== ENCOUNTER 2025-04-25 15:18 | Emergency (ER) | payer MEDICARE, OTHER, SELFPAY ==
[2025-04-25 15:27] VITALS: BP 123/81
[2025-04-25 16:06] LABS: Hematocrit 44.7 % (39.0-52.0); Hemoglobin 15.2 g/dL (13.0-18.0); Mean Corp Hgb Conc. 34.0 g/dL (33.0-37.0); Mean Corpuscular Volume 91.2 fL (80.0-94.0); Nucleated Red Blood Cells % 0 % (-); Platelet Count 206 10^3/uL (130-400); Red Cell Dist. Width 13.0 % (11.5-14.5)
[2025-04-25 16:17] LABS: ALT (SGPT) 35 U/L (0-50); AST (SGOT) 32 U/L (17-59); Albumin 4.5 g/dl (3.5-5.0); Alkaline Phosphatase 67 U/L (38-126); Blood Urea Nitrogen 13 mg/dl (9-20); Calcium 9.1 mg/dl (8.4-10.2); Carbon Dioxide 31 mmol/L (22-30); Chloride 100 mmol/L (98-107); Glucose 97 mg/dl (70-99); Potassium 4.1 mmol/L (3.5-5.1); Sodium 136 mmol/L (135-145); Total Protein 7.6 g/dl (6.3-8.2); eGFR > 60.00
[2025-04-25 16:19] LABS: Urine Character Clear (Clear)
[2025-04-25 16:39] LABS: Urine Red Blood Cell 0-2 /HPF (0-2); Urine White Cell 0-2 /HPF (0-5)
[2025-04-25 18:58] VITALS: BP 140/96
[2025-04-25] MEDS: PERCOCET 5/325 1 TABLET PO (19:04)
--- NOTE | 2025-04-25 20:10 | ED.GENMED ---
History of Present Illness
General
Chief Complaint: Flank Pain
Time Seen by Provider: 04/25/25 18:35
History of Present Illness
History of Present Illness:
79-year-old male with history of paroxysmal A-fib, pulmonary fibrosis, hypertension, and hyperlipidemia presents to the emergency department for evaluation of right flank/lower back pain that began abruptly this morning. States he has had viral URI
symptoms for the past 4 days and has not been very active. Pain began when getting out of bed. Pain does not radiate to the legs and there are no lower extremity paresthesias. Denies any fevers, dysuria, hematuria, nausea, or vomiting. States it
feels comparable to past bout of kidney stones
Past History
Past History
ED Past Medical History: CAD, Hypercholesterolemia and Other (kidney stones, GERD, depression, arthritis, colon polyps, hemmorhiods)
ED Past Surgical History: Cardiac
Social History
Tobacco: Non-smoker
Alcohol: None
Drug: None
Personal:
Living: with family
Employment: Retired
Review of Systems
Review of Systems
Allergies reviewed?: Yes
All Other Systems: ROS reviewed and negative except as documented in HPI and ROS
Phy Exam
Physical Exam
Physical Exam:
GEN: Well appearing, NAD, WDWN
HEENT: Oral mucosa moist, no scleral icterus
Cardiac: Regular rate
Lung: No respiratory distress, no tachypnea
MSK: No gross deformity or injuries. No midline lumbar spinal tenderness to palpation, no CVA tenderness bilaterally. Mild reproduced tenderness to the right paraspinous musculature, negative straight leg raise bilaterally
Skin: Good color, no pallor or jaundice, no rashes
Neuro: AO x3, moves all extremities freely
Psych: Calm, cooperative
Course
Orders/Labs/Results
Orders:
Orders
04/25/25 15:42
CMP [Comprehensive Metabolic Panel] Urgent
Complete Blood Count/With Diff Urgent
Urinalysis Reflex To Culture Urgent
Date Specimen was Collected: 04/25/25
Time Specimen was Collected: 15:30
Urine Microscopic Reflex Cult Urgent
04/25/25 17:11
Abdomen/Pelvis wo Contrast CT [CT Abd/pelvis Wo Iv Cont] Urgent
Comment: r/o kidney stone
Reason For Exam: pain
04/25/25 18:59
Oxycodone/Acetaminophen [Percocet 5/325] 1 tablet PO NOW STA
Abnormal Lab Results
04/25/25
15:42
WBC 12.5 H 10^3/uL
(4.8-10.8)
Abs Immat Gran (auto) 0.1 H 10^3/uL
(0-0.05)
Absolute Neuts (auto) 7.4 H 10^3/uL
(1.4-6.5)
Absolute Monos (auto) 1.5 H 10^3/uL
(0.1-0.6)
Monocytes % 11.6 H %
(1.7-9.3)
Carbon Dioxide 31 H mmol/L
(22-30)
Urine Bacteria (Reflex) Few A
(Negative)
Urine Albumin (Reflex) 1+ A
(Neg - Trace)
04/25/25 15:42
04/25/25 15:42
Vital Signs
Initial and Last Documented VS:
Initial Vital Signs
Temp Pulse Resp BP Pulse Ox
98.7 F 53 18 123/81 98
04/25/25 15:27 04/25/25 15:27 04/25/25 15:27 04/25/25 15:27 04/25/25 15:27
Last Documented Vital Signs
Temp Pulse Resp BP Pulse Ox
98.7 F 79 19 140/96 93
04/25/25 15:27 04/25/25 19:07 04/25/25 18:58 04/25/25 18:58 04/25/25 20:10
MDM/Problems Addressed
MDM/Problems Addressed:
Workup is unrevealing, CT shows no evidence for obstructive uropathy. No evidence for UTI. Suspect this is musculoskeletal, his pain did improve with Percocet. Given his anticoagulated on Eliquis we will treat with a course of steroids and lieu
of NSAIDs. At the completion of the visit patient requested a refill of his venlafaxine as [facility] not [facility] and he only has 1 day left, I did oblige his request with a 1 month refill
*Pulse Oximetry
SaO2: 93
Oxygen Mode of Delivery: Room air
Patient hypoxic: no
*Critical Care Note
Total Time (30-74mins, 75-104mins- exclusive of procedures): Not Applicable
ED Attending Note
-
Portions of this chart may have been created with voice recognition software.� Occasional wrong word or��sound alike� substitutions may have occurred due to the inherent limitations of voice recognition software.
Discharge Plan
Departure
Patient Disposition: Home (Routine Discharge)
Date of Disposition: 04/25/25
Time of Disposition: 20:10
Patient with high blood pressure during this ER visit?: No
Discharge Problem:
Low back pain
Instructions: Low back pain - ED (DC)
Prescriptions:
New
methylprednisolone [Medrol (Moi)] 4 mg tablets,dose pack
See Rx Instructions .ROUTE .COMPLEX Qty: 21 0RF
Rx Instructions:
orally per package directions
venlafaxine 150 mg capsule,extended release 24hr
300 mg PO DAILY Qty: 60 0RF
oxycodone-acetaminophen [Percocet] 5-325 mg tablet
1 tab PO Q6HPRN PRN (Reason: pain) Qty: 10 0RF
No Action
pantoprazole 40 MG tablet,delayed release (DR/EC)
40 mg PO DAILY Qty: 90 3RF
atorvastatin 80 MG tablet
80 mg PO HS
ezetimibe 10 MG tablet
10 mg PO QPM
montelukast 10 MG tablet
10 mg PO DAILY
aspirin 81 mg Tablet,Delayed Release (Dr/Ec)
81 mg PO HS
acetaminophen 500 mg Tablet
500 mg PO Q6H PRN (Reason: pain)
fiber Capsule
1 cap PO DAILY
neomycin-polymyxin B-dexameth Drops,Suspension
1 drp OPHTHALMIC (EYE) BID
Rx Instructions:
RIGHT EYE
turmeric root extract 500 mg Capsule
500 mg PO DAILY
Centrum Silver Men [id number] mcg Tablet
1 tab PO DAILY
Sciatic Nerve Formula
1 cap PO DAILY
fluticasone propion-salmeterol [Wixela Inhub] 500-50 mcg/dose Blister With Device
1 inh INHALATION BID
Eliquis 5 mg tablet
5 mg PO BID Qty: 60 0RF
magnesium 500 mg Tablet
500 mg PO DAILY
venlafaxine 150 mg Capsule,Extended Release 24hr
300 mg PO DAILY
amlodipine 5 mg Tablet
5 mg PO DAILY
furosemide 20 mg Tablet
20 mg PO DAILY
dofetilide 500 mcg Capsule
500 mcg PO Q12 Qty: 60 1RF
metoprolol tartrate 25 mg Tablet
12.5 mg PO BID Qty: 60 1RF
Referrals:
Mt Vasquez MD [Family Provider, Internal Medicine]
Interventions
Interventions:
*Risk Screen - Suicide Last Done: 04/25/25 15:27
*General Assessment Last Done: 04/25/25 18:58
*Neglect/Abuse Screening Last Done: 04/25/25 18:58
*ED COVID-19 Vaccine History Last Done: 04/25/25 18:58
*ED Influenza Vaccine History Last Done: 04/25/25 18:58
*Nursing Disposition Last Done: 04/25/25 20:39
[facility]j-[facility]yjkrlp[facility] Assessment Last Done: 04/25/25 18:58
ED-Male Genitourinary Assessment Last Done: 04/25/25 18:58
Discharge Date and Time
Discharge Date/Time: 04/25/25 20:39
Print Language: SINHALA
== END 2025-04-25 20:39 | disposition home or self-care (01) ==
LOC: EMR 15:18
PROVIDERS: Emergency Medicine; EMERGENCY PHYSICIAN Emergency Medicine; FAMILY PHYSICIAN Internal Medicine
DX: M54.50 Low back pain, unspecified (principal); E78.00 Pure hypercholesterolemia, unspecified; I10 Essential (primary) hypertension; I25.10 Atherosclerotic heart disease of native coronary artery without angina pectoris; I48.0 Paroxysmal atrial fibrillation; Z87.442 Personal history of urinary calculi
CPT/HCPCS: 99284; 74176; 80053; 81003; 81015; 85025

== ENCOUNTER 2025-05-20 17:15 | Inpatient (IN) | payer MEDICARE, OTHER, SELFPAY ==
[2025-05-20] VITALS (7 sets, daily range): BP systolic 110–128; BP diastolic 67–102
[2025-05-20 12:53] LABS: Hematocrit 44.7 % (39.0-52.0); Hemoglobin 15.3 g/dL (13.0-18.0); Mean Corp Hgb Conc. 34.2 g/dL (33.0-37.0); Mean Corpuscular Volume 90.5 fL (80.0-94.0); Nucleated Red Blood Cells % 0 % (-); Platelet Count 154 10^3/uL (130-400); Red Cell Dist. Width 12.9 % (11.5-14.5)
[2025-05-20 13:03] LABS: ALT (SGPT) 39 U/L (0-50); AST (SGOT) 47 U/L (17-59); Albumin 4.5 g/dl (3.5-5.0); Alkaline Phosphatase 62 U/L (38-126); Blood Urea Nitrogen 16 mg/dl (9-20); Calcium 9.3 mg/dl (8.4-10.2); Carbon Dioxide 24 mmol/L (22-30); Chloride 101 mmol/L (98-107); Glucose 109 mg/dl (70-99); Potassium 4.2 mmol/L (3.5-5.1); Sodium 133 mmol/L (135-145); Total Protein 7.6 g/dl (6.3-8.2); eGFR > 60.00
[2025-05-20 13:17] LABS: COVID-19 Antigen Negative (Negative)
--- NOTE | 2025-05-20 14:41 | ED.GENMED ---
History of Present Illness
General
Chief Complaint: Fall
Source: patient and spouse
Exam Limitations: none
Time Seen by Provider: 05/20/25 13:00
Nursing documentation reviewed up to this point in time: agreed with
History of Present Illness
History of Present Illness:
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
this morning attempting to get out of bed fell to the floor. He was able to get himself up this morning with some difficulty and yesterday his helped him up and walked him to bed where he stayed the rest of the day. He states he has a mild
headache, denies change in vision. Denies neck pain or back pain. He has a vision of the outer aspect of his left eye from his fall yesterday. There was no loss of conscious.
He denies chest pain, he has had a cough for about a week now. Denies N/V/D/C. Denies fever or chills. Denies abdominal pain. His appetite has been good
His brother from [place] recently moved in with them 2 weeks ago and when he came he also had a cough, was weak and 2 days ago started with vomiting.
Past History
Past History
ED Past Medical History: Arrthythmia (A-fib on Eliquis), CAD, Cancer (Basal cell removed chest and arm), GERD, HTN, Hypercholesterolemia, Psychiatric (PTSD, anxiety/depression) and Other (kidney stones, GERD, depression, arthritis, colon polyps,
hemmorhiods)
ED Past Surgical History: Cardiac
Social History
Tobacco: Non-smoker
Alcohol: None
Drug: None
Personal:
Living: with family
Employment: Retired
Review of Systems
Review of Systems
Allergies reviewed?: Yes
All Other Systems: ROS reviewed and negative except as documented in HPI and ROS
Phy Exam
Physical Exam
Physical Exam:
GENERAL: No acute distress. A&Ox3.
CONSTITUTIONAL: Afebrile.
EYES: clear, conjunctivae normal
ENMT: moist mucus membranes, Pharynx nl
RESPIRATORY: Regular respirations, nonlabored, lungs clear. Occasional cough
CARDIOVASCULAR: Regular rate and rhythm, no murmurs, no rubs.
GI: Soft, nontender, normal BS
MUSCULOSKELETAL: Moves with ease. Well perfused. No edema
SKIN: Warm, dry, pink
PSYCH: Normal mood and affect. Well kept, interactive and appropriate
NEUROLOGIC: Awake, alert and oriented. No focal neurological deficits
Course
Orders/Labs/Results
Orders:
Orders
05/20/25 11:[address] [CT Head W/o Iv Contrast] Urgent
Comment:
Reason For Exam: head injury on blood thinners
05/20/25 12:30
CMP [Comprehensive Metabolic Panel] Urgent
Complete Blood Count/With Diff Urgent
05/20/25 12:34
COVID-19 Antigen Urgent
Source: Nasal Swab
Influenza A+B Rapid Molecular Urgent
[facility] Source: Nasal Swab
Specimen Description:
05/20/25 13:09
CR Chest - 2 Views Urgent
Comment:
Reason For Exam: cough, weakness
05/20/25 Dinner
Cholesterol Lowering
At Your Request: Full Participation
Does patient need a safe tray?: No
Cholesterol Lowering: Sodium, 2 Gram
05/20/25 15:15
Urinalysis Reflex To Culture Urgent
Date Specimen was Collected: 05/20/25
Time Specimen was Collected: 15:11
Urine Microscopic Reflex Cult Urgent
05/20/25 15:55
Admit/Transfer Patient As Directed
Co-Sign Provider:
Level of Care: Inpatient admission
Assign to:: Telemetry
Physician / Group: Brandie Bills
Diagnosis: acute hypoxic respiratory insufficiency, influenza A
Reason for Telemetry: Arrhythmia
Date to Stop Telemetry: 05/23/25
Time to Stop Telemetry: 11:00
Reason for Hospitalization: acute hypoxic respiratory insufficiency, influenza A
Expected length of stay greater than two midnights?: Yes
ELOS- Estimated Length of Stay in days: 3
I certify the patient meets the requirements for IP care: Yes
05/20/25 15:56
PRN Pain Medication Management As Directed
May give lesser potent ordered pain med per pt: Yes
preference::
Protocol:: Medication orders for pain may be administered in a
manner that supports deferring to patient preference
when the pt is:
- Requesting an ordered lesser potent pain medication.
Least to most potent pain medications are defined
as: acetaminophen < NSAID < tramadol < opioids
(morphine, oxycodone, hydromorphone).
- Requesting a lesser dose of the same medication IF
ORDERED.
- Requesting a less intrusive route of administration
if both routes are prescribed by the provider (PO <
IV).
05/20/25 15:58
Code Status As Directed
Resuscitation Status: Full Code
05/20/25 16:25
Acetaminophen [Tylenol] 650 mg PO Q4HPRN PRN
05/20/25 17:42
Activity As Directed
Activity Level: As Tolerated
Intake/ Output As Directed
Frequency: Per unit guidelines
Patient Education As Directed
Type: CHF folder
Comment: give on admission. Document in Interdisciplinary Education record
Sleep Apnea Assessment by RN As Directed
Comment:
Physician Instructions:
Vital Signs As Directed
Frequency: Per unit guidelines
Weight As Directed
Frequency: Daily
Type of Scale: Standing Scale
Comment: Daily morning weight. If unable to stand, use balanced bed scale.
Weight As Directed
Frequency: Once
Type of Scale: Standing Scale
Comment: Upon Admission. If unable to stand, use balanced bed scale.
O2 Therapy [RESP] Routine
Titrate/Wean O2 to maintain O2 sat greater than (%): 93
Special Instructions: wean as tolerated
Pulse Ox/cont/shift [RESP] Routine
Quantity: 1
Special Instructions: Daily pulse oximetry at rest. If greater than 92% at rest also obtain pulse oximetry
while ambulating as tolerated.
Ot Eval And Treat Routine
Pt Eval And Treat Routine
Activity Level: As Tolerated
05/20/25 18:00
Ezetimibe [Zetia] 5 mg PO QPM
05/20/25 20:00
Apixaban [Eliquis] 5 mg PO BID
Dofetilide [Tikosyn] 500 mcg PO Q12
Metoprolol [Lopressor] 12.5 mg PO BID
Oseltamivir Phosphate [Tamiflu] 75 mg PO BID
fluticasone propion-salmeterol [Wixela Inhub] 1 inh INH R BID
05/20/25 22:00
Atorvastatin [Lipitor] 80 mg PO HS
05/21/25 06:00
Basic Metabolic Panel IN AM
Complete Blood Count/No Diff IN AM
05/21/25 08:00
Amlodipine [Norvasc] 5 mg PO DAILY
Furosemide [Lasix] 20 mg PO DAILY
Magnesium Oxide 400 mg PO DAILY
Montelukast Sodium [Singulair] 10 mg PO DAILY
Multivitamin [Theragran] 1 tablet PO DAILY
Pantoprazole [Protonix] 40 mg PO DAILY
Venlafaxine Extended Release [Effexor Xr] 300 mg PO DAILY
05/23/25 11:00
DC Protocol for Telemetry ONCE
Abnormal Lab Results
05/20/25 05/20/25
12:30 15:15
Absolute Monos (auto) 1.2 H 10^3/uL
(0.1-0.6)
Monocytes % 15.3 H %
(1.7-9.3)
Sodium 133 L mmol/L
(135-145)
Glucose 109 H mg/dl
(70-99)
Urine Ketones 2+ A
(Negative)
Urine Bacteria (Reflex) Few A
(Negative)
Urine Albumin (Reflex) 2+ A
(Neg - Trace)
05/20/25 12:30
05/20/25 12:30
Vital Signs
Initial and Last Documented VS:
Initial Vital Signs
Temp Pulse Resp BP
99.5 F 110 18 110/72
05/20/25 11:06 05/20/25 11:06 05/20/25 11:06 05/20/25 11:06
Last Documented Vital Signs
Temp Pulse Resp BP Pulse Ox
99.4 F 82 16 117/72 93
05/20/25 17:51 05/20/25 17:51 05/20/25 17:51 05/20/25 17:51 05/20/25 17:51
MDM/Problems Addressed
Differential Diagnosis Includes:
COVID, flu, pneumonia, dehydration
MDM/Problems Addressed:
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
this morning attempting to get out of bed fell to the floor. He was able to get himself up this morning with some difficulty and yesterday his helped him up and walked him to bed where he stayed the rest of the day. He states he has a mild
headache, denies change in vision. Denies neck pain or back pain. He has a vision of the outer aspect of his left eye from his fall yesterday. There was no loss of conscious.
He denies chest pain, he has had a cough for about a week now. Denies N/V/D/C. Denies fever or chills. Denies abdominal pain. His appetite has been good
His brother from [place] recently moved in with them 2 weeks ago and when he came he also had a cough, was weak and 2 days ago started with vomiting.
CBC, CMP normal
COVID-negative
influenza A positive
3:10 PM:
Chest x-ray: Result pending
Patient out of bed with walker could barely stand due to general weakness, took a few steps and pulse ox dropped to 87%, placed back in bed. O2 2L NC applied
Plan admit, acute respiratory failure with influenza A
Chest x-ray result pending
Hospitalist notified of admission
*Pulse Oximetry
SaO2: 92
Patient hypoxic: yes
*Critical Care Note
Total Time (30-74mins, 75-104mins- exclusive of procedures): Not Applicable
ED Attending Note
-
Portions of this chart may have been created with voice recognition software.� Occasional wrong word or��sound alike� substitutions may have occurred due to the inherent limitations of voice recognition software.
Discharge Plan
Departure
Patient Disposition: Admit
Date of Disposition: 05/20/25
Time of Disposition: 15:09
Presentation/result/management discussed w/ accepting MD/DO: Hospitalist
Condition: Fair
Covid-19: Negative COVID-19
Discharge Problem:
Influenza A, Acute hypoxic respiratory failure
Interventions
Interventions:
*ED COVID-19 Vaccine History Last Done: 05/20/25 11:06
*ED Influenza Vaccine History Last Done: 05/20/25 11:06
[facility] Risk Assessment Tool Last Done: 05/20/25 12:00
*Risk Screen - Suicide (C-SSRS) Last Done: 05/20/25 11:06
*Nursing Disposition Last Done: 05/20/25 17:59
ED-Musculoskeletal Assessment Last Done: 05/20/25 13:11
ED- Neurological Assessment Last Done: 05/20/25 13:10
ED-Skin Assessment Last Done: 05/20/25 13:10
Discharge Date and Time
Discharge Date/Time: 05/20/25 18:00
--- NOTE | 2025-05-20 15:15 | HPS.HSE ---
Addendum entered and electronically signed by Brandie Bills MD 05/20/25 16:19:
This is an addendum to the H&P written by Trinidad Acosta on 05/20/2025. �Patient seen examined independently with DIG[employer]INE[employer].
79-year-old male past medical history of bronchiectasis secondary to agent orange, �interstitial lung disease, obstructive sleep apnea on CPAP, paroxysmal atrial fibrillation, CAD status post stents, SVT, mild to moderate tricuspid regurgitation,
hyperlipidemia, prediabetes, hypertension, PTSD presenting with weakness and fall. �Mild headache. �Cough for 1 week as per patient but 2 to 3 days as per . �Also confusion. �No nausea vomiting or diarrhea constipation. �No fevers or chills.
�Abdominal pain.
Vital signs shows tachycardia up to 110. �Patient requiring 2 L oxygen.
Labs unremarkable.
Positive for influenza A.
Chest x-ray shows diminished degree inspiration. �Slight crowding of parenchymal markings at the lung bases especially in the medial right lung base.
Patient with influenza A infection with resulting weakness/falls. �Tamiflu started.
Original Note:
Family Physician
-
Family Physician: [facility]
Chief Complaint
-
cough, shortness of breath, generalized weakness
History of Present Illness
Patient is a 79-year-old male with past medical history significant for hypertension, hyperlipidemia, atrial fibrillation, ASCVD, pulmonary fibrosis, GERD and anxiety/depression who presented to [facility] ED for evaluation of flu like symptoms. Patient
at bedside patient is not who she 'knows,' states he has had increased fogginess and confusion last couple of days. She reports he has had 3 falls in last 24-hours from generalized weakness, he does endorse head strike last night. She notes
that when he reported head strike she told him they needed to come to ED for evaluation and loaded him in the car. Patient reports increased shortness of breath and productive cough over last couple of days. Denies fever, chills, chest pain,
palpitations, nausea, vomiting or diarrhea.
Medical History
Past Medical History
Past Medical History: Reports Other
Additional Past Medical History:
hypertension
hyperlipidemia
atrial fibrillation
ASCVD
pulmonary fibrosis
interstitial lung disease
GERD
anxiety/depression
mitral valve prolapse
nonrheumatic mitral valve regurgitation
obstructive sleep apnea
Agent orange exposure
Past Surgical History: Reports Other
Additional Past Surgical History:
cardiac cath with PCI
back surgery(2000)
Laminectomy
Rotator cuff repair(2005)
colonoscopy(2010)
Surgery on left hand 06/05/2018
right Shoulder RTC repair and removal of foreign body (DOS 08/12/23) DNB
Social History
Tobacco: Non-smoker
Alcohol: Occasional
Drug: None
Personal:
Living: With Family
Employment: Retired
Family History
Family History: Not pertinent
Allergies / Home Medications
Allergies reflects when Allergies were last updated in [facility].
Home Medications with original date entered in [facility]
Allergy/Medication List:
Allergies
Allergy/AdvReac Type Severity Reaction Status Date / Time
No Known Drug Allergies Allergy NA Verified 05/20/25 11:05
ragweed pollen Allergy eyes Verified 05/20/25 11:05
tearing,wheezing
Home Medications
pantoprazole 40 mg tablet,delayed release 40 mg PO DAILY #90 tabs 08/19/15
atorvastatin 80 mg tablet 80 mg PO HS High cholesterol 10/18/19
ezetimibe 10 mg tablet 5 mg PO QPM High cholesterol 10/18/19
montelukast 10 mg tablet 10 mg PO DAILY ASTHMA 10/12/20
acetaminophen 500 mg tablet 500 mg PO Q6H PRN pain 08/09/23
fluticasone 500 mcg-salmeterol 50 mcg/dose blistr powdr for inhalation (Wixela Inhub) 1 inh inhalation R BID Lung/Breathing Issues 08/09/23
dzrzdzxo-yf-bpdfp 300 mcg-K 60 mcg-lycop 600 mcg-lutein 300 mcg tablet (Centrmallorie Jurado Men) 1 tab PO DAILY Supplement 08/09/23
turmeric root extract 500 mg capsule 500 mg PO DAILY Supplement 08/09/23
apixaban 5 mg tablet (Eliquis) 5 mg PO BID #60 tabs 02/11/24
amlodipine 5 mg tablet 5 mg PO DAILY Blood Pressure 07/19/24
furosemide 20 mg tablet 20 mg PO DAILY Fluid Retention/Swelling 07/19/24
dofetilide 500 mcg capsule 500 mcg PO Q12 #60 caps 07/22/24
metoprolol tartrate 25 mg tablet 12.5 mg (1/2 x 25 mg) PO BID #60 tabs 07/22/24
venlafaxine 150 mg capsule,extended release 24 hr 300 mg (2 x 150 mg) PO DAILY #60 caps 04/25/25
albuterol sulfate 90 mcg/actuation aerosol inhaler 2 puff inhalation Q4HPRN PRN sob 05/20/25
calcium polycarbophil 625 mg tablet (FiberCon) 625 mg PO DAILY 05/20/25
magnesium oxide 500 mg PO DAILY 05/20/25
Review of Systems
-
History Source: Patient
Constitutional: Denies Fever or Chills
EENT: Denies Sore Throat
Respiratory: Reports Cough and Trouble Breathing
Cardiac: Denies Chest Pain, Diaphoresis, Palpitations or Syncope
Abdomen/GI: Denies Abdominal Pain, Nausea, Vomiting or Diarrhea
: Reports Urgency; Denies Dysuria or Frequency
Musculoskeletal: Denies Joint Pain
Skin: Denies Rash
Neurological: Reports Headache and Weakness; Denies Dizzy or Numbness
Physical Exam
Vital Signs
Vital Signs
Temp Pulse Resp BP Pulse Ox
99.0 F 109 14 110/72 92
05/20/25 13:10 05/20/25 13:10 05/20/25 13:10 05/20/25 11:06 05/20/25 14:41
Physical Exam
General: Well Developed, Well Nourished, No Apparent Distress, Comfortable and Conversant
HEENT: NormoCephalic, Moist mucous membranes, PERRLA, Nose Appears Normal and Ears Appear Normal
Respiratory: Clear, Non Labored Respirations, Decreased Breath Sounds and Other (moist cough); No Wheezes, Rales or Rhonchi
Cardiac: Irregular Rhythm; No Murmur, Rub, Gallop or Peripheral Edema
GI: Soft, Non Tender, Non Distended and Normal Bowel Sounds
Musculoskeletal: No Clubbing and No Cyanosis
Skin: Warm and IV/Catheter Site
Neuro: Awake and Alert
Psych: Calm
Laboratory Results
-
05/20/25 12:30
05/20/25 12:30
Laboratory Results
Total Bilirubin 0.8 mg/dl (0.2-1.3) 05/20/25 12:30
AST 47 U/L (17-59) 05/20/25 12:30
ALT 39 U/L (0-50) 05/20/25 12:30
Alkaline Phosphatase 62 U/L (38-126) 05/20/25 12:30
Data Reviewed
-
Diagnostic Radiology: Report Reviewed by me (CXR: Diminished degree inspiration. Slight crowding of parenchymal markings at the lung bases especially in the medial right lung base. However, in the proper clinical setting it would be difficult to
exclude the possibility of a small medial right base infiltrate.)
CT Scan: Report Reviewed by me (Head: No acute intracranial abnormality noted. Mild atrophy. Mild periventricular small vessel ischemic disease)
Lab Data: Labs Reviewed by me
Impression/Plan
-
IMPRESSION/PLAN:
#acute hypoxic respiratory insufficiency likely 2/2 Influenza A infection
increased shortness of breath and productive cough with generalized weakness last 2-3 days
Labs unremarkable
Covid: negative
Influenza: positive for Flu A
CXR:Diminished degree inspiration. Slight crowding of parenchymal markings at the lung bases especially in the medial right lung base. However, in the proper clinical setting it would be difficult to
exclude the possibility of a small medial right base infiltrate.
Head CT: No acute intracranial abnormality noted.
Mild atrophy.
Mild periventricular small vessel ischemic disease
- Admit to telemetry
- Tamiflu
- supportive care
- O2 to maintain SpO2, wean as tolerated
#hypertension
- continue amlodipine
#hyperlipidemia
- continue atorvastatin and ezetimibe
#atrial fibrillation
- continue dofetilide and Eliquis
#ASCVD
#pulmonary fibrosis
#GERD
- continue pantoprazole
#anxiety/depression
- continue venlafaxine
#mitral valve prolapse
#nonrheumatic mitral valve regurgitation
#obstructive sleep apnea
Code status: DNR
DVT prophylaxis: Eliquis
[2025-05-20 15:41] LABS: Urine Character Clear (Clear)
[2025-05-20] MEDS: TYLENOL 650 MG PO (16:29)
[2025-05-20 16:43] LABS: Urine Squamous Cell 0-2 /LPF (Few)
[2025-05-20 16:44] LABS: Urine Red Blood Cell 0-2 /HPF (0-2); Urine White Cell 0-2 /HPF (0-5)
--- NOTE | 2025-05-20 17:37 | EDCM ---
Reviewed chart and met with pt and bedside in ED. They live in 1 story home, 3 IVPUL from garage and front door.
Independent in ADLs, personal care and ambulation at baseline, no assistive device. Only DME is CPAP.
Currently on 2L NC in ED.
PMH includes Pulmonary fibrosis, bronchiectasis, sleep apnea, Afib, HTN, HLD, ASCVD, Anxiety, Depression, PTSD, CAD
Confirms prescription coverage.
No hx HH or SNF
PCP: [facility]
Pharmacy: [facility] for local prescriptions, also [facility]
Anticipate discharge home, CM will continue to follow for all discharge planning needs.
[2025-05-20] MEDS: ZETIA 5 MG PO (18:24)
[2025-05-20] MEDS: ADVAIR HFA 230/21 MCG INHALER INH (19:39)
[2025-05-20] MEDS: TIKOSYN 500 MCG PO (19:51)
[2025-05-20] MEDS: ELIQUIS 5 MG PO (19:51)
[2025-05-20] MEDS: TAMIFLU 75 MG PO (19:51)
[2025-05-20] MEDS: LOPRESSOR 12.5 MG PO (19:52)
[2025-05-20] MEDS: LIPITOR 80 MG PO (21:31)
[2025-05-21] VITALS (9 sets, daily range): BP systolic 96–119; BP diastolic 61–78; PULSE 78–80; O2SAT 93–95
[2025-05-21] MEDS: TYLENOL 650 MG PO ×2 (03:15→18:39)
[2025-05-21] MEDS: ADVAIR HFA 230/21 MCG INHALER 2 PUFF INH ×2 (08:20→19:37)
[2025-05-21 08:37] LABS: Hematocrit 43.4 % (39.0-52.0); Hemoglobin 15.0 g/dL (13.0-18.0); Mean Corp Hgb Conc. 34.6 g/dL (33.0-37.0); Mean Corpuscular Volume 90.0 fL (80.0-94.0); Platelet Count 151 10^3/uL (130-400); Red Cell Dist. Width 12.9 % (11.5-14.5)
[2025-05-21 08:54] LABS: Blood Urea Nitrogen 23 mg/dl (9-20); Calcium 9.0 mg/dl (8.4-10.2); Carbon Dioxide 23 mmol/L (22-30); Chloride 101 mmol/L (98-107); Glucose 106 mg/dl (70-99); Potassium 3.8 mmol/L (3.5-5.1); Sodium 134 mmol/L (135-145); eGFR > 60.00
[2025-05-21] MEDS: LASIX 20 MG PO (10:18)
[2025-05-21] MEDS: SINGULAIR 10 MG PO (10:18)
[2025-05-21] MEDS: PROTONIX 40 MG PO (10:18)
[2025-05-21] MEDS: LOPRESSOR 12.5 MG PO ×2 (10:18→19:58)
[2025-05-21] MEDS: EFFEXOR XR 300 MG PO (10:18)
[2025-05-21] MEDS: ELIQUIS 5 MG PO ×2 (10:19→19:57)
[2025-05-21] MEDS: TIKOSYN 500 MCG PO ×2 (10:19→19:57)
[2025-05-21] MEDS: MAGNESIUM OXIDE 400 MG PO (10:19)
[2025-05-21] MEDS: THERAGRAN 1 TABLET PO (10:20)
[2025-05-21] MEDS: NORVASC 5 MG PO (10:20)
[2025-05-21] MEDS: TAMIFLU 75 MG PO ×2 (10:20→20:00)
[2025-05-21 10:46] LABS: Procalcitonin < 0.05 ng/ml (0.0-0.25)
--- NOTE | 2025-05-21 14:34 | W.PN.HOSP.TC ---
Today's Communication/Plan
-
wean o2 as tolerated
tamiflu
incentive enrique
Assessment / Plan
Assessment / Plan
Physical Exam
General: Well Developed, Well Nourished, No Apparent Distress, Comfortable and Conversant
HEENT: NormoCephalic, Moist mucous membranes, PERRLA, Nose Appears Normal and Ears Appear Normal
Respiratory: Clear, Non Labored Respirations, Decreased Breath Sounds and Other (moist cough); No Wheezes, Rales or Rhonchi
Cardiac: Irregular Rhythm; No Murmur, Rub, Gallop or Peripheral Edema
GI: Soft, Non Tender, Non Distended and Normal Bowel Sounds
Musculoskeletal: No Clubbing and No Cyanosis
Skin: Warm and IV/Catheter Site
Neuro: Awake and Alert
Psych: Calm
#acute hypoxic respiratory failure likely 2/2 Influenza A infection
#Sepsis with end organ dysfunction with source
Influenza: positive for Flu A
CXR:Diminished degree inspiration. Slight crowding of parenchymal markings at the lung bases especially in the medial right lung base. However, in the proper clinical setting it would be difficult to
exclude the possibility of a small medial right base infiltrate.
Head CT: No acute intracranial abnormality noted.
Mild atrophy.
Mild periventricular small vessel ischemic disease
- Admit to telemetry
- Tamiflu
- supportive care
- O2 to maintain SpO2, wean as tolerated; goal o2>92%
- Pulmonary toilet
#Hyponatremia
-mild
-likely 2/2 to Flu
-monitor
#hypertension
- continue amlodipine
#hyperlipidemia
- continue atorvastatin and ezetimibe
#atrial fibrillation
- continue dofetilide and Eliquis
#ASCVD
#pulmonary fibrosis
#GERD
- continue pantoprazole
#anxiety/depression
- continue venlafaxine
#mitral valve prolapse
#nonrheumatic mitral valve regurgitation
#obstructive sleep apnea
Code status: DNR
DVT prophylaxis: Eliquis
Anticipated Discharge: 24 - 48 hours
Subjective/Interval History
-
Date of Service: May 21, 2025
Spiked temp 101.1
Objective Data
-
Labs:
Laboratory Results
05/21/25
07:52
WBC 5.5
Hgb 15.0
Hct 43.4
Plt Count 151
Sodium 134 L
Potassium 3.8
Chloride 101
Carbon Dioxide 23
BUN 23 H
Creatinine 1.0
Glucose 106 H
Calcium 9.0
Vital Signs:
Vital Signs
Temp Pulse Resp BP Pulse Ox
99.0 F 78 18 111/71 92
05/21/25 11:16 05/21/25 11:16 05/21/25 11:16 05/21/25 11:16 05/21/25 11:16
I&O
05/20/25 05/21/25 05/22/25
06:59 06:59 06:59
Output Total 200 / 200 150 / 150
Balance -200 / -200 -150 / -150
Review of Systems
-
History Source: Patient
All other systems: Not reviewed unless documented
Data Reviewed
-
Diagnostic Radiology: Report Reviewed by me
Labs: Labs Reviewed by me
[2025-05-21] MEDS: ZETIA 5 MG PO (18:34)
[2025-05-21] MEDS: LIPITOR 80 MG PO (19:59)
[2025-05-22 02:47] VITALS: BP 100/65
[2025-05-22 07:00] VITALS: BP 102/68
[2025-05-22] MEDS: ADVAIR HFA 230/21 MCG INHALER 2 PUFF INH (08:05)
[2025-05-22] MEDS: TAMIFLU 75 MG PO (08:08)
[2025-05-22] MEDS: MAGNESIUM OXIDE 400 MG PO (08:08)
[2025-05-22] MEDS: THERAGRAN 1 TABLET PO (08:08)
[2025-05-22] MEDS: ELIQUIS 5 MG PO (08:09)
[2025-05-22] MEDS: PROTONIX 40 MG PO (08:09)
[2025-05-22] MEDS: SINGULAIR 10 MG PO (08:09)
[2025-05-22] MEDS: EFFEXOR XR 300 MG PO (08:09)
[2025-05-22] MEDS: NORVASC PO (08:11)
[2025-05-22] MEDS: LOPRESSOR 12.5 MG PO (08:11)
[2025-05-22] MEDS: TYLENOL 650 MG PO (08:13)
[2025-05-22] MEDS: LASIX PO ×2 (08:14→08:18)
[2025-05-22] MEDS: TIKOSYN 500 MCG PO (08:15)
[2025-05-22 08:37] LABS: Hematocrit 44.4 % (39.0-52.0); Hemoglobin 15.1 g/dL (13.0-18.0); Mean Corp Hgb Conc. 34.0 g/dL (33.0-37.0); Mean Corpuscular Volume 90.6 fL (80.0-94.0); Platelet Count 146 10^3/uL (130-400); Red Cell Dist. Width 12.9 % (11.5-14.5)
[2025-05-22 09:25] LABS: ALT (SGPT) 45 U/L (0-50); AST (SGOT) 69 U/L (17-59); Albumin 4.1 g/dl (3.5-5.0); Alkaline Phosphatase 51 U/L (38-126); Blood Urea Nitrogen 23 mg/dl (9-20); Calcium 8.8 mg/dl (8.4-10.2); Carbon Dioxide 26 mmol/L (22-30); Chloride 101 mmol/L (98-107); Glucose 110 mg/dl (70-99); Potassium 3.6 mmol/L (3.5-5.1); Sodium 135 mmol/L (135-145); Total Protein 7.2 g/dl (6.3-8.2); eGFR > 60.00
--- NOTE | 2025-05-22 10:01 | W.PN.HOSP.TC ---
Addendum entered and electronically signed by Levi Coleman MD 05/24/25 15:43:
Respiratory failure is/was present and is a clinical diagnosis based on requirement of oxygen and tachypnea (RRs 20s)
Addendum entered and electronically signed by Levi Coleman MD 05/22/25 15:32:
[id number]
Original Note:
Today's Communication/Plan
-
Tamiflu
Follow-up x-ray outpatient in 4 to 6 weeks
Follow-up PCP and pulmonary outpatient
Labs in 1 week
Assessment / Plan
Assessment / Plan
Physical Exam
General: Well Developed, Well Nourished, No Apparent Distress, Comfortable and Conversant
HEENT: NormoCephalic, Moist mucous membranes, PERRLA, Nose Appears Normal and Ears Appear Normal
Respiratory: Clear, Non Labored Respirations, Decreased Breath Sounds and Other (moist cough); No Wheezes, Rales or Rhonchi
Cardiac: Irregular Rhythm; No Murmur, Rub, Gallop or Peripheral Edema
GI: Soft, Non Tender, Non Distended and Normal Bowel Sounds
Musculoskeletal: No Clubbing and No Cyanosis
Skin: Warm and IV/Catheter Site
Neuro: Awake and Alert
Psych: Calm
#acute hypoxic respiratory failure likely 2/2 Influenza A infection
#Sepsis with end organ dysfunction with source
Influenza: positive for Flu A
CXR:Diminished degree inspiration. Slight crowding of parenchymal markings at the lung bases especially in the medial right lung base. However, in the proper clinical setting it would be difficult to
exclude the possibility of a small medial right base infiltrate.
Head CT: No acute intracranial abnormality noted.
Mild atrophy.
Mild periventricular small vessel ischemic disease
- Admit to telemetry
- Tamiflu�complete 5 days
- supportive care
- Weaned off O2; saturating 92%
- Pulmonary toilet
#Hyponatremia, resolved
-mild
-likely 2/2 to Flu
-monitor, follow BMP outpatient
#hypertension
- continue amlodipine
#hyperlipidemia
- continue atorvastatin and ezetimibe
#atrial fibrillation
- continue dofetilide and Eliquis
#ASCVD
#pulmonary fibrosis
#GERD
- continue pantoprazole
#anxiety/depression
- continue venlafaxine
#mitral valve prolapse
#nonrheumatic mitral valve regurgitation
#obstructive sleep apnea
Code status: DNR
DVT prophylaxis: Eliquis
More than 30 minutes spent in discharge including
Final examination of the patient
Summarizing hospital stay
Instructions for continuing care to all relevant caregivers
Preparation of discharge records, prescriptions, and referral forms
Total time spent (in minutes): 36
Anticipated Discharge: Today
Subjective/Interval History
-
Date of Service: May 22, 2025
Feels much better, on room air, ambulating without O2 requirement
Objective Data
-
Labs:
Laboratory Results
05/22/25
08:10
WBC 5.1
Hgb 15.1
Hct 44.4
Plt Count 146
Sodium 135
Potassium 3.6
Chloride 101
Carbon Dioxide 26
BUN 23 H
Creatinine 0.9
Glucose 110 H
Calcium 8.8
Total Bilirubin 0.6
AST 69 H
ALT 45
Alkaline Phosphatase 51
Vital Signs:
Vital Signs
Temp Pulse Resp BP Pulse Ox
97.6 F 71 14 102/68 95
05/22/25 07:00 05/22/25 08:17 05/22/25 08:17 05/22/25 08:11 05/22/25 08:17
I&O
05/21/25 05/22/25 05/23/25
06:59 06:59 06:59
Intake Total 880 / 880
Output Total 200 / 200 150 / 150
Balance -200 / -200 730 / 730
Review of Systems
-
History Source: Patient
All other systems: Not reviewed unless documented
Data Reviewed
-
Diagnostic Radiology: Report Reviewed by me
Labs: Labs Reviewed by me
--- NOTE | 2025-05-22 10:04 | W.DS.TRANS ---
DC Summary - [employer]
-
Discharge Instructions:
Discharge Diagnosis/Procedures acute hypoxic respiratory failure likely 2/2
Influenza A infection
Diet Low Cholesterol,Low Fat
Activity As tolerated
Blood Work cbc and bmp in 1 week
Others Tests CXR in 4-6 weeks with pulmonary/PCP
Instructions:
Stand-Alone Forms:
Changes to Home Medications: Yes
Discharge Medications:
DC Medications w/original date entered in [employer]
pantoprazole 40 mg tablet,delayed release 40 mg PO DAILY #90 tabs 08/19/15
atorvastatin 80 mg tablet 80 mg PO HS High cholesterol 10/18/19
ezetimibe 10 mg tablet 5 mg PO QPM High cholesterol 10/18/19
montelukast 10 mg tablet 10 mg PO DAILY ASTHMA 10/12/20
acetaminophen 500 mg tablet 500 mg PO Q6H PRN pain 08/09/23
fluticasone 500 mcg-salmeterol 50 mcg/dose blistr powdr for inhalation (Wixela Inhub) 1 inh inhalation R BID Lung/Breathing Issues 08/09/23
uriudtum-ar-imqnq 300 mcg-K 60 mcg-lycop 600 mcg-lutein 300 mcg tablet (Centrum Silver Men) 1 tab PO DAILY Supplement 08/09/23
turmeric root extract 500 mg capsule 500 mg PO DAILY Supplement 08/09/23
apixaban 5 mg tablet (Eliquis) 5 mg PO BID #60 tabs 02/11/24
amlodipine 5 mg tablet 5 mg PO DAILY Blood Pressure 07/19/24
furosemide 20 mg tablet 20 mg PO DAILY Fluid Retention/Swelling 07/19/24
dofetilide 500 mcg capsule 500 mcg PO Q12 #60 caps 07/22/24
metoprolol tartrate 25 mg tablet 12.5 mg (1/2 x 25 mg) PO BID #60 tabs 07/22/24
venlafaxine 150 mg capsule,extended release 24 hr 300 mg (2 x 150 mg) PO DAILY #60 caps 04/25/25
albuterol sulfate 90 mcg/actuation aerosol inhaler 2 puff inhalation Q4HPRN PRN sob 05/20/25
calcium polycarbophil 625 mg tablet (FiberCon) 625 mg PO DAILY Gastrointestinal Issue 05/20/25
magnesium oxide 500 mg PO DAILY Supplement 05/20/25
oseltamivir 75 mg capsule 75 mg PO BID 3 days #6 caps 05/22/25
Home Medication Changes
oseltamivir 75 mg capsule 75 mg PO BID 3 days #6 caps 05/22/25
Pending Results: No
--- NOTE | 2025-05-22 10:27 | PN.CDI ---
CDI
- -
CDI:
Physician Documentation Request
Admit Date: 05/20/25 17:15
Dear Doctor [place],
Patient presented with generalized weakness to ED and falls. Assessment in ED 'RESPIRATORY: Regular respirations, nonlabored, lungs clear. Occasional cough'
H&P states 'acute hypoxic respiratory insufficiency likely 2/2 Influenza A infection increased shortness of breath and productive cough with generalized weakness last 2-3 days'
Documentation shows patient on 2 liters O2.
05/21 progress note states 'acute hypoxic respiratory failure likely 2/2 Influenza A infection'
Recognized standard criteria for respiratory failure includes:
(Source: Tommy Segura. 2019, April 12. Documentation tips: Acute Respiratory Failure, The Hospitalist)
ABGs (1 or more)
�PO2 <60 or RA SpO2 <91%
�PcO2 >45 and pH <7.35
�pO2 decrease or pcO2 increase by 10 mmHg from baseline if known
- P/F ratio (pO2/FiO2) less than 300 Symptoms:
�Tachypnea, SOB, dyspnea
�Pallor or cyanosis
�Anxiety or restlessness
�Use of accessory muscles
�Retractions (grunting in newborns)
�Unable to speak in complete sentences
Based on the above information and the recognized standard for respiratory failure could you please verify this diagnoses is still accurate and reflective of the patient�s condition to ensure quality of the medical record.
Please clarify in the Progress Notes:
�Respiratory failure is/was present and is a clinical diagnosis based on (please include this additional support in the medical record)
�After study respiratory failure has been ruled out
�Other
Use of terms such as suspected, likely, concern for, or probable (associated with a specific diagnosis that is being evaluated, monitored, or treated as if it exists) are acceptable and can be coded in the inpatient setting, when documented at the
time of discharge.
Thank you,
Nayla Rowley RN, BSN
CDI Specialist
tiger text
Please use your independent medical judgment in providing your response.
--- NOTE | 2025-05-22 10:54 | CM ---
CM reviewed chart, patient seen bedside.
Patient for d.c today- no longer requiring O2.
Patient offered home therapy to patient-declining. Aware PCP can set up home therapy once discharged.
IMM verbally reviewed, provided with copy, placed in chart.
Patients confirms will transport home.
CM will continue to follow.
Plan; home no needs.
[2025-05-22 11:00] VITALS: BP 103/72
--- NOTE | 2025-05-22 11:17 | PTCARENOTE ---
Assumed care of pt from previous nurse. Pt denies pain. Pt for dc today. Maintaining sat's off 02. Call dalal is within reach, pt rings josephine. will cont to monitor.
--- NOTE | 2025-05-22 13:26 | PTCARENOTE ---
Pt dc'd to home with . IV removed, tele removed, escorted by staff via w/c. Paperwork reviewed and copy provided
== END 2025-05-22 13:50 | disposition home or self-care (01) | DRG 871 ==
LOC: 4 WEST ACU 17:15
PROVIDERS: Emergency Medicine; Nurse Practitioner Family; Registered Nurse; ADMITTING PHYSICIAN Hospitalist; ATTENDING PHYSICIAN Internal Medicine; EMERGENCY PHYSICIAN Emergency Medicine; FAMILY PHYSICIAN Internal Medicine
DX: A41.9 Sepsis, unspecified organism (principal); J96.01 Acute respiratory failure with hypoxia; E87.1 Hypo-osmolality and hyponatremia; J10.1 Influenza due to other identified influenza virus with other respiratory manifestations; R65.20 Severe sepsis without septic shock; I10 Essential (primary) hypertension; Z79.01 Long term (current) use of anticoagulants; I48.0 Paroxysmal atrial fibrillation; I25.10 Atherosclerotic heart disease of native coronary artery without angina pectoris; J84.10 Pulmonary fibrosis, unspecified; K21.9 Gastro-esophageal reflux disease without esophagitis; F41.9 Anxiety disorder, unspecified; F32.A Depression, unspecified; Z66 Do not resuscitate
CPT/HCPCS: 70450; 71046; 80048; 80053; 81003; 81015; 84145; 85025; 85027; 87040; 87502; 87811; 94640; 97163; 97166; 99285